=== PATIENT | female | born 1930 | race Caucasian/White ===

== ENCOUNTER 2016-05-14 09:39 | Day surgery (SDC) | payer OTHER ==
[2016-05-07 11:39] VITALS: BMI 24.2
[2016-05-14] MEDS: GENTAMICIN SULFATE 0.3% OPHTHALMIC (EYE DROPS) 5ML BOTTLE ONE ×2 (10:15→10:30)
[2016-05-14] MEDS: FLURBIPROFEN 0.03% OPHTH SOLN 2.5 ML BOTTLE ONE ×4 (10:15→10:30)
[2016-05-14] MEDS: TROPICAMIDE 1% OPHTH SOLN 15 ML BOTTLE ONE ×4 (10:15→10:30)
[2016-05-14] MEDS: PHENYLEPHRINE 2.5% OPHTH SOLN 15 ML BOTTLE ONE ×4 (10:15→10:30)
[2016-05-14] MEDS: CYCLOPENTOLATE HCL 1% OPHTH SOLN 2 ML BOTTLE ONE ×4 (10:15→10:30)
[2016-05-14] MEDS ORDERED: MIDAZOLAM HCL 2 MG/2 ML SINGLE DOSE VIAL ONE (11:16)
[2016-05-14] MEDS ORDERED: PROPOFOL 20 ML ONE (11:18)
[2016-05-14] MEDS ORDERED: ACETAMINOPHEN 325 MG TABLET (FP) PO PRN (11:29)
[2016-05-14] MEDS ORDERED: TETRACAINE 0.5% OPHTH SOLN 2 ML BOTTLE ONE (11:30)
[2016-05-14] MEDS ORDERED: LIDOCAINE HCL/PF 2% SDV 5ML VIAL ONE (11:30)
[2016-05-14] MEDS ORDERED: ACETYLCHOLINE 1:100 INTRA-OCUL 20 MG/2 ML KIT ONE (11:30)
[2016-05-14] MEDS ORDERED: BUPIVACAINE HCL/PF 0.5% (5MG/ML) 10 ML VIAL ONE (11:30)
[2016-05-14] MEDS ORDERED: BACITRACIN/POLYMYXIN OPH OINT 3.5 GM TUBE ONE (11:30)
[2016-05-14] MEDS ORDERED: LIDOCAINE HCL 2% JELLY 10 ML CARTRIDGE ONE (11:30)
[2016-05-14] MEDS ORDERED: NEO/POLYMYX B SULF/DEXAMETH OPHTHALMIC 5ML BOTTLE ONE (12:08)
[2016-05-14] MEDS ORDERED: BETAXOLOL HCL 0.25% OPHTHALMIC 10 ML DROPSBTL ONE (12:08)
[2016-05-14 13:58] VITALS: TEMP 98.6
[2016-05-14 14:07] VITALS: BP 132/74; PULSE 88
[2016-05-14] MEDS ORDERED: ONDANSETRON 4 MG/2 ML VIAL IVPUSH PRN (15:32)
--- NOTE | 2016-05-18 19:10 | OP ---
DATE OF OPERATION: 05/14/2016 TITLE OF PROCEDURE: Planned extracapsular cataract extraction, phacoemulsification, insertion of posterior chamber lens implant, and a filtering procedure of the left eye. SURGEON: Spike Galaviz MD [employer] SURGEONS: Norma Rabago MD and Spike Galaviz MD ANESTHESIA: Local with standby. ANESTHESIOLOGIST: Edwar Greene MD NURSE VP ANALYTICS: Unknown at this time. PREOPERATIVE DIAGNOSES: Cataract, left eye; glaucoma, left eye. POSTOPERATIVE DIAGNOSES: Cataract, left eye; glaucoma, left eye. FINDINGS AND PROCEDURE: After a successful periorbital anesthesia was given, the patient was prepped and draped in the usual manner to expose the left eye and then Tegaderm strips and lid speculum were inserted on the lids and the microscope brought into position over the left eye. Viscoat was placed on the corneal surface and the attention was focused superiorly at the 12 o'clock limbus, where a superior fornix-based flap was then fashioned for 12 mm using Westcotts and 0.12 forceps and hemostasis achieved with electrocautery. A limbal groove was fashioned for 3 mm with a crescent blade and dissected anterior into clear cornea. A 3-mm blade was used to enter the anterior chamber. Then, under Viscoat a 360-degree anterior capsulorrhexis was performed and the leaflet removed from the eye. Phacoemulsification of the entire nucleus was then done in approximately 2 minutes' time followed by irrigation and aspiration of all cortical material with an intact posterior capsule and a red reflex present. Provisc was injected in the posterior chamber to deepen the posterior capsule and then the implant was carefully inspected, found to be free of defects was folded, placed in the Provisc-filled cartridge, the cartridge placed in the injector, and the implant injected into the eye such that the inferior haptic was in the inferior capsular bag and the superior haptic in the superior capsular bag and then rotated in the horizontal position with a Sinskey hook. Then, attention was then focused to the trabecular meshwork, where a block measuring 1 x 3 mm was excised using Vannas scissors, micro-sharp blade, and 0.12 forceps, and then the iridotomy was performed at 1 o'clock using the same instruments. The Provisc was then aspirated out and replaced with Miochol, Miostat, and BSS and it was closed with 1 loosely tied 10-0 Ethilon interrupted suture for the leakage and a slow ooze was present with side port irrigation to indicate filtration was being established and the conjunctival tenon flap was reapproximated and a shallow bleb began to form superiorly. Topical Betoptic S and Maxitrol ophthalmic suspensions were placed as was bacitracin, polymyxin ophthalmic ointment. The Tegaderm strips and lid speculum were removed from the lids. The lids were closed and a patch and shield placed on the eye and the patient was then discharged from the operating room to the recovery area in good condition, having tolerated the procedure well. Radha [id number]
== END 2016-05-14 13:45 | disposition home or self-care (01) ==
LOC: FASU 09:39
PROVIDERS: ATTEND Ophthalmology
PROC: 08RK3JZ Replacement of Left Lens with Synthetic Substitute, Percutaneous Approach (ICD-10-PCS; principal; 2016-05-14 11:56)
DX: H26.8 Other specified cataract (principal)